=== PATIENT | female | born 1960 | race African-American/Black ===

== ENCOUNTER 2016-06-12 09:35 | Emergency (ER) | payer SELFPAY ==
[2016-06-12] MEDS ORDERED: LABETALOL HCL INJ 20 MG/4 ML DISP.SYRIN IV ONE (10:30)
[2016-06-12] MEDS ORDERED: HYDROCHLOROTHIAZIDE 25 MG TABLET PO ONE (10:31)
[2016-06-12] MEDS ORDERED: LISINOPRIL 10 MG TABLET PO ONE (10:31)
[2016-06-12 10:56] LABS: ABSOLUTE BASOPHILS # (AUTO) 0.1 10^3/uL (0.0-0.2); ABSOLUTE EOSINOPHILS # (AUTO) 0.2 10^3/uL (0.0-0.6); ABSOLUTE LYMPHOCYTES (AUTO) 1.7 10^3/uL (0.5-4.7); ABSOLUTE MONOCYTES (AUTO) 0.6 10^3/uL (0.1-1.4); ABSOLUTE NEUT (AUTO) 3.6 10^3/uL (1.7-8.2); BASOPHILS % (AUTO) 1.1 % (0-2); EOSINOPHILS % (AUTO) 2.5 % (0-6); HEMATOCRIT 43.4 % (36.0-47.0); HEMOGLOBIN 14.1 g/dL (12.0-15.5); HGB HCT DIFFERENCE -1.1; LYMPHOCYTES % (AUTO) 27.6 % (13-45); MEAN CORPUSCULAR HEMOGLOBIN 28.1 pg (27.0-33.4); MEAN CORPUSCULAR HGB CONC 32.5 g/dL (32.0-36.0); MEAN CORPUSCULAR VOLUME 86 fl (80-97); MONOCYTES % (AUTO) 9.4 % (3-13); RED BLOOD COUNT 5.02 10^6/uL (3.72-5.28); RED CELL DISTRIBUTION WIDTH 13.3 % (11.5-14.0); SEGMENTED NEUTROPHILS % (AUTO) 59.4 % (42-78); WHITE BLOOD COUNT 6.1 10^3/uL (4.0-10.5)
--- NOTE | 2016-06-12 11:18 | ER Document Report ---
ED Blood Pressure Problem - General Chief Complaint: Blood Pressure Problem Stated Complaint: POSSIBLE HIGH BLOOD PRESSURE Notes: This is a 55-year-old female history of hypertension who states she's been out of her blood pressure medication for one month due to the loss of Obamacare. She states that for the past week she has had very elevated blood pressure and feeling lightheaded. She's had occasional blurred vision. She sometimes feels palpitations. She denies any chest pain. She states her symptoms usually improve with lying down. She's been checking her blood pressure at home with 2 different meters and found that her systolics have been above 200 and her diastolics above 100 fairly consistently. TRAVEL OUTSIDE OF THE [place] IN LAST 30 DAYS: No - Related Data Allergies/Adverse Reactions: No Known Allergies Allergy (Verified 06/12/16 09:51) Past Medical History - Social History Smoking Status: Current Every Day Smoker Chew tobacco use (# tins/day): No Frequency of alcohol use: None Drug Abuse: None Family History: Hypertension, Other - Patient's mother ended up on dialysis due to uncontrolled hypertension Patient has suicidal ideation: No Patient has homicidal ideation: No - Past Medical History Cardiac Medical History: Reports: Hx Congestive Heart Failure, Hx Hypertension Pulmonary Medical History: Denies: Hx Tuberculosis Renal/ Medical History: Denies: Hx Peritoneal Dialysis - Immunizations Hx Diphtheria, Pertussis, Tetanus Vaccination: No Review of Systems - Review of Systems Constitutional: Malaise. denies: Fever EENT: denies: Vertigo Cardiovascular: Palpitations. denies: Chest pain, Heart racing, Syncope, Edema Respiratory: denies: Short of breath Gastrointestinal: Nausea. denies: Abdominal pain, Vomiting Genitourinary: denies: Flank pain Musculoskeletal: denies: Leg swelling Neurological/Psychological: denies: Gait changes, Seizure, Headaches, Numbness, Tingling Physical Exam - Vital signs Vitals: Temp Pulse Resp BP Pulse Ox 97.9 F 89 18 205/129 H 100 06/12/16 09:52 06/12/16 09:52 06/12/16 09:52 06/12/16 09:52 06/12/16 09:52 - Notes Notes: GENERAL: Smiling, pleasant, well-appearing female standing up in the room, normally conversant and in no distress HEAD: Atraumatic, normocephalic. EYES: Pupils equal round and reactive to light, extraocular movements intact, sclera anicteric, conjunctiva are normal. ENT: nares patent, oropharynx clear without exudates. Moist mucous membranes. NECK: Normal range of motion, supple without lymphadenopathy or JVD. LUNGS: Breath sounds clear to auscultation bilaterally and equal. No wheezes rales or rhonchi. HEART: Regular rate and rhythm without murmurs, rubs or gallops. ABDOMEN: Soft, nontender, normoactive bowel sounds. No guarding, no rebound. No masses appreciated. EXTREMITIES: Normal range of motion, no pitting or edema. No clubbing or cyanosis. NEUROLOGICAL: Cranial nerves II through XII grossly intact. Normal speech, normal gait. PSYCH: Normal mood, normal affect. SKIN: Warm, Dry, normal turgor, no rashes or lesions noted. Course - Re-evaluation Re-evalutation: 06/12/16 12:03 The patient's creatinine has increased from 1.37-1.8 in past 5 years. I discussed these findings with her and the abnormal EKG which is similar but slightly worsened appearance compared to her EKG from 2012. The patient does not want to stay in the hospital as she is caring 14 age children at home. She is also concerned about medical bills at this time. She does plan to follow-up at the [facility]. She will fill her prescriptions and resume taking her blood pressure medications. - Vital Signs Vital signs: Temp Pulse Resp BP Pulse Ox 97.9 F 89 18 205/129 H 100 06/12/16 09:52 06/12/16 09:52 06/12/16 09:52 06/12/16 09:52 06/12/16 09:52 - Laboratory Result Diagrams: 06/12/16 10:30 06/12/16 10:30 Laboratory results interpreted by me: 06/12/16 10:30 Carbon Dioxide 21 L BUN 51 H Creatinine 1.80 H Est GFR ( Amer) 35 L Est GFR (Non-Af Amer) 29 L Glucose 186 H - Diagnostic Test Radiology reviewed: Reports reviewed - EKG Interpretation by Me EKG shows normal: Sinus rhythm Rate: Normal Rhythm: NSR Voltage: Consistant with LVH - T-wave inversion in 1, aVL, V4 through V6; slightly more pronounced when compared to prior EKG dated 09/09/11 Discharge - Discharge Clinical Impression: Uncontrolled hypertension, Renal insufficiency, mild Condition: Stable Disposition: HOME, SELF-CARE Additional Instructions: [facility] as [facility]. Return to ER if blood pressure is poorly controlled or you are not feeling well. Prescriptions: Amlodipine Besylate 10 mg PO DAILY #30 tab Lisinopril/Hydrochlorothiazide [Lisinopril-Hctz 20-25 mg Tab] 1 each PO DAILY # 30 tablet
[2016-06-12] MEDS ORDERED: HYDRALAZINE HCL INJ/PF 20 MG/1 ML SDV ONE (11:26)
[2016-06-12 11:31] LABS: ANION GAP 16 (5-19); BLOOD UREA NITROGEN 51 mg/dL (7-20); CALCIUM 10.2 mg/dL (8.4-10.2); CARBON DIOXIDE 21 mmol/L (22-30); CHLORIDE 102 mmol/L (98-107); GLUCOSE 186 mg/dL (75-110); POTASSIUM 4.4 mmol/L (3.6-5.0); SODIUM 139.1 mmol/L (137-145)
[2016-06-12] MEDS ORDERED: NORMAL SALINE 1000 ML 1,000 ML IV ONE (11:54)
[2016-06-12] MEDS ORDERED: HYDRALAZINE HCL INJ/PF 20 MG/1 ML SDV IV ONE (11:58)
--- NOTE | 2016-06-12 12:54 | EKG REPORT ---
SEVERITY:- ABNORMAL ECG - SINUS RHYTHM VENTRICULAR PREMATURE COMPLEX LVH WITH SECONDARY REPOLARIZATION ABNORMALITY : Confirmed by: Farshad Fofana MD 12-Jun-2016 12:53:48
[2016-06-12 14:02] VITALS: BP 138/83
== END 2016-06-12 14:15 | disposition home or self-care (01) ==
LOC: ER 09:35
DX: I10 Essential (primary) hypertension (principal); Z91.14 Patient's other noncompliance with medication regimen; N28.9 Disorder of kidney and ureter, unspecified; R94.31 Abnormal electrocardiogram [ECG] [EKG]; R42 Dizziness and giddiness; H53.8 Other visual disturbances; R00.2 Palpitations; R53.81 Other malaise; R11.0 Nausea; F17.200 Nicotine dependence, unspecified, uncomplicated; Z82.49 Family history of ischemic heart disease and other diseases of the circulatory system
CPT/HCPCS: 93005; 99284; 96374; 36415; 85025; 80048; 84484; 71020; 93010; J0360